=== PATIENT | female | born 1970 | race Caucasian/White ===

== ENCOUNTER 2020-10-10 10:01 | Emergency (ER) | payer OTHER, MEDICAID ==
[~2020-10-10] VITALS: Ht 157.5 cm; Wt 70.8 kg
[2020-10-10 10:04] VITALS: BP 129/72
--- NOTE | 2020-10-10 10:09 | NUR ---
PT TAKEN TO BED 1 VIA WHEELCHAIR.
--- NOTE | 2020-10-10 10:15 | NUR ---
50 y/o F BIB caregiver, Jonnathan, from [facility] for c/c left calf blister x 1 week. Pt presents non-verbal due to history and assessment information received from caregiver. Caregiver states staff noted the blister to left leg/popliteal region, 3" (+) redness/swelling, no drainage noted at site. Unable to obtain pain scale d/t non-verbal/history. Caregiver states staff applied topical antibiotic ointment with no relief. Caregiver states staff noted on Tuesday, 10/04, pt presented with edema from her calf to her feet. Unable to assess CMS due to swelling. Caregiver states RN evaluated pt at facility and was recommended to go to ER for evaluation. Caregiver denies any fevers, chills, nausea/vomiting, trauma/falls. Pt placed onto car framer. Bed locked in lowest position, side rails x 1, call light in reach. MED HX: MR, EPILEPSY, CEREBRAL PALSY, HYPOTHYROID, GERD, HTN, DYSPHAGIA Meds: Plendronate, Levetriacetam, Lansoprazole, levothyroxine, metoprolol, Phenbarbital, Valproic acid NKA
--- NOTE | 2020-10-10 10:20 | NUR ---
Dr. Merino is evaluating patient at bedside with US.
--- NOTE | 2020-10-10 10:45 | NUR ---
Ultrasound at bedside
[2020-10-10] MEDS: CLINDAMYCIN 150 MG CAP GT ONE (10:51)
--- NOTE | 2020-10-10 10:51 | NUR ---
Patient presents with G-tube attachment that is incompatible with stocked syringe equipment (luerlock/plunger). Dr. Merino made aware, new IM orders placed.
[2020-10-10] MEDS: CLINDAMYCIN 600 MG/4 ML VIAL IM ONE (10:57)
--- NOTE | 2020-10-10 11:10 | NUR ---
Patient resting in semi-fowlers with caregiver at bedside. monitoring manager in place. Respirations even/unlabored. Bed locked in lowest position, side rails x 1, call light in reach.
[2020-10-10] MEDS ORDERED: CLIN75PD6 GT (11:44)
[2020-10-10 11:51] VITALS: BP 105/67
--- NOTE | 2020-10-10 11:51 | NUR ---
Patient discharged with v/s stable. Written and verbal after care instructions given and explained. Patient alert, oriented and verbalized understanding of instructions. Wheel Chair Assisted with by caregiver. All questions addressed prior to discharge. ID band removed. Patient advised to follow up with PMD. Rx of Clindamycin given. Patient educated on indication of medication including possible reaction and side effects. Opportunity to ask questions provided and answered.
== END 2020-10-10 11:51 | disposition home or self-care (01) ==
LOC: MED 10:01
DX: L03.116 Cellulitis of left lower limb (principal); R60.0 Localized edema; Z79.899 Other long term (current) drug therapy
CPT/HCPCS: 93971; 96372; 99284; J3490

== ENCOUNTER 2021-05-31 17:57 | Inpatient (IN) | payer OTHER, MEDICAID, SELFPAY ==
[~2021-05-31] VITALS: Ht 167.6 cm; Wt 74.8 kg
[~2021-05-31 17:57] MED LIST: CLIN75PD6 GT
[2021-05-31 18:04] VITALS: BP 140/77
[2021-05-31] MEDS ORDERED: NACL 0.9% 1,000 ML IV ONE (18:30)
[2021-05-31] MEDS ORDERED: LORazepam 2 MG/ML VIAL ONE (18:31)
--- NOTE | 2021-05-31 18:39 | NUR ---
SEIZURE PADS SETUP.
--- NOTE | 2021-05-31 19:02 | NUR ---
50 Y/O F BIBA [facility], [facility] STATES THAT PT HAD 1 SEIZURE THIS MORNING AROUND 1400 AND WAS GIVEN VALPORIC ACID, PT HAD 9 MORE SEIZURE FOLLOWING BLOW UP OPERATOR, [facility] WAS CALLED AFTER 10TH SEIZURE. UPON ARRIVAL PT GCS 11 TO BASELINE, UNABLE TO AMBULATE, WITHDRAWS TO PAIN. PT HAS BRUISING IN LATER STAGE ON R SIDE OF FACE NEAR ORBITAL AREA. PT HAS PRESSURE WOUND UNDER L HEEL AT THIS TIME. G TUBE. SKIN IS WARM/MOIST/EDEMATOUS WITH PITTING EDEMA +1 GENERALIZED. SEIZURE PADS PLACED, PT ON CARDIAC AND OXYGEN MONITORING. PMH: SEIZURES, HTN NKA MED: VALPORIC ACID
[2021-05-31] MEDS ORDERED: LORazepam 2 MG/ML VIAL IVP ONE (19:05)
[2021-05-31 19:10] LABS: BASOPHILS % (AUTO) 0.2 % (0.0-2.0); HEMATOCRIT 43.6 % (36-48); HEMOGLOBIN 14.8 g/dL (12.0-16.0); LYMPHOCYTES # (AUTO) 1.6 K/uL (2.5-16.5); LYMPHOCYTES % (AUTO) 9.8 % (20.5-51.1); MEAN CORPUSCULAR HEMOGLOBIN 32 pg (27-31); MEAN CORPUSCULAR HGB CONC 34 g/dL (33-37); MEAN CORPUSCULAR VOLUME 93.9 fL (80-94); MONOCYTES % (AUTO) 6.3 % (1.7-9.3); NEUTROPHILS # (AUTO) 13.7 K/uL (1.8-7.7); NEUTROPHILS % (AUTO) 83.7 % (42.2-75.2); PLATELET COUNT (AUTO) 202 K/uL (140-450); RED BLOOD CELL COUNT(AUTO) 4.64 MIL/uL (4.20-5.40); RED CELL DISTRIBUTION WIDTH 12.3 % (11.6-13.7); WHITE BLOOD COUNT (AUTO) 16.4 K/uL (4.8-10.8)
--- NOTE | 2021-05-31 19:10 | NUR ---
REPORT RECEIVED FROM REY ANDRE FOR CONTINUITY OF PT CARE AT THIS TIME.
[2021-05-31 19:54] LABS: PROTHROMBIN TIME 10.7 secs (10.8-13.4)
[2021-05-31 19:57] LABS: ALBUMIN 2.9 g/dL (3.4-5.0); ANION GAP 17.6 (8-16); CARBON DIOXIDE 23.1 mmol/L (21-32); CREATININE 0.7 mg/dL (0.6-1.3); POTASSIUM 3.7 mmol/L (3.5-5.1); TOTAL BILIRUBIN 0.1 mg/dL (0.0-1.0)
[2021-05-31] MEDS ORDERED: levETIRAcetam 1,000 MG in NACL 0.9% 100 ML IV ONE (20:25)
[2021-05-31] MEDS ORDERED: levETIRAcetam 100 MG/ML VIAL IV ONE (20:47)
--- NOTE | 2021-05-31 20:58 | NUR ---
PT LAYING IN BED SUPINE LOCKED INLOWEST POSITION W X2 SIDERAIL UP FOR PT SAFETY W SEIZURE PRECAUTIONS IN PLACE. PT GCS 11. NO SIGNS OF PAIN, NAD NOTED, WILL CONTINUE TO MONITOR. VSS ON MONITOR.
[2021-05-31] MEDS ORDERED: DEXT 5% / NACL 0.9% 1,000 ML IV SCH (21:40)
--- NOTE | 2021-05-31 22:40 | NUR ---
PROVIDED PT W PERINEAL CARE. NEW DIAPER, AND PLACED IN GOWN. W ASSISTANCE FROM REY JEFFERSON.
--- NOTE | 2021-05-31 22:43 | NUR ---
ATTEMPTED STRAIGHT CATH ON PT FOR URINE COLLECTION. STRAIGHT CATH ATTEMPTED BY PRIMARY RN AND REY JEFFERSON. UNABLE TO COLLECTED URINE. CHARGE NURSE MADE AWARE.
[2021-05-31] MEDS: DEXT 5% / NACL 0.9% 1,000 ML IV SCH (22:53)
[2021-05-31] MEDS ORDERED: HYDROcodone/APAP 5/325 MG 1 TAB TAB GT PRN (23:10)
[2021-05-31] MEDS ORDERED: LORazepam 2 MG/ML VIAL IVP PRN (23:10)
[2021-05-31] MEDS ORDERED: ACETAMINOPHEN 650 MG/20.3 ML UDC GT PRN ×2 (23:10→23:25)
[2021-05-31] MEDS ORDERED: ONDANSETRON 4 MG/2 ML VIAL IVP PRN (23:10)
--- NOTE | 2021-06-01 00:10 | NUR ---
PT APPEARS TO BE RESTING W EYES CLOSED, IN SUPINE POSITION W BREATHING EVEN AND UNLABORED. NSS. NAD NOTED, WILL CONTINUE TO MONITOR.
--- NOTE | 2021-06-01 00:43 | NUR ---
L HEEL WOUND PHOTO TAKEN AND ATTACHED TO CHART.
--- NOTE | 2021-06-01 01:42 | NUR ---
URINE OBTAINED VIA STRAIGHT CATH W 500 ML CLEAR YELLOW URINE OUTPUT. SAMPLE SENT TO LAB W ROYAL MANAGER NURSING.
[2021-06-01 01:58] LABS: APPEARANCE,URINE CLEAR (CLEAR); BILIRUBIN,URINE NEGATIVE (NEGATIVE); BLOOD, URINE NEGATIVE (NEGATIVE); COLOR,URINE YELLOW (YELLOW); LEUKOCYTE ESTERASE ,URINE NEGATIVE (NEGATIVE); NITRITE, URINE NEGATIVE (NEGATIVE); PH,URINE 8.5 (5.0-9.0); UGLUCOSE NEGATIVE (NEGATIVE)
--- NOTE | 2021-06-01 04:03 | NUR ---
LAYING IN BED SUPINE LOCKED IN LOWEST POSITION W X2 SIDERAILS UP FOR PT SAFETY. SEIZURE PRECAUTIONS IN PLACE. BERATHING EVEN AND UNLABORED. VSS ON MONITOR. 5%-0.9NS RUNNING AT 100ML/HR. NAD NOTED, WILL CONTINUE TO MONITOR.
--- NOTE | 2021-06-01 06:21 | NUR ---
IV FLUIDS STOPPED AT THIS TIME.
--- NOTE | 2021-06-01 06:21 | NUR ---
PT HAD R HAND BENT, AT IV SITE, CHECKED IV SITE. IV SITE NOTED W SOME BLOOD, SKIN HAD SOME REDNESS, AND SLIGHT SWELLING, IV NON-FLUSHABLE. IV REMOVED. WARM COMPRESS APPLIED. NEW IV TO BE ESTABLISHED. CHARGE NURSE MADE AWARE.
[2021-06-01 06:58] LABS: BASOPHILS # (AUTO) 0.1 K/uL (0.00-0.22); BASOPHILS % (AUTO) 0.5 % (0.0-2.0); EOSINOPHILS # (AUTO) 0.1 K/uL (0-0.4); EOSINOPHILS % (AUTO) 0.5 % (0.0-4.0); HEMATOCRIT 40.9 % (36-48); HEMOGLOBIN 13.9 g/dL (12.0-16.0); LYMPHOCYTES # (AUTO) 2.5 K/uL (2.5-16.5); LYMPHOCYTES % (AUTO) 22.7 % (20.5-51.1); MEAN CORPUSCULAR HEMOGLOBIN 32 pg (27-31); MEAN CORPUSCULAR HGB CONC 34 g/dL (33-37); MEAN CORPUSCULAR VOLUME 93.7 fL (80-94); MONOCYTES # (AUTO) 1.1 K/uL (0.8-1.0); NEUTROPHILS # (AUTO) 7.3 K/uL (1.8-7.7); NEUTROPHILS % (AUTO) 66.3 % (42.2-75.2); PLATELET COUNT (AUTO) 246 K/uL (140-450); RED BLOOD CELL COUNT(AUTO) 4.36 MIL/uL (4.20-5.40); RED CELL DISTRIBUTION WIDTH 12.3 % (11.6-13.7)
--- NOTE | 2021-06-01 07:08 | NUR ---
UNABLE TO OBTAIN IV ACCESS AT THIS TIME. AM SHIFT NURSE MADE AWARE.
--- NOTE | 2021-06-01 07:10 | NUR ---
Pt report given to REY ANDRE. Transfer of care at this time.
[2021-06-01 07:12] LABS: ANION GAP 12.4 (8-16); CARBON DIOXIDE 26.6 mmol/L (21-32); CREATININE 0.4 mg/dL (0.6-1.3)
[2021-06-01 07:21] LABS: ALBUMIN 2.8 g/dL (3.4-5.0); MAGNESIUM 2.3 mg/dL (1.8-2.4); PHOSPHORUS 2.9 mg/dL (2.5-4.9); TOTAL BILIRUBIN 0.2 mg/dL (0.0-1.0)
[2021-06-01] MEDS: DEXT 5% / NACL 0.9% 1,000 ML IV SCH ×2 (07:45→17:45)
--- NOTE | 2021-06-01 07:47 | NUR ---
Patient will be admitted to care of CHE DURAN. Admited to TELEMETRY. Will go to room 110A. Belongings list completed. Report to THERESE LE.
[2021-06-01 07:57] VITALS: BP 128/72
--- NOTE | 2021-06-01 07:57 | NUR ---
PT WAS BROUGHT IN BY THE ED ON RNEY IN STABLE CONDITION. PT HAS NO IV ACCESS. PT HAS GENERALIZED EDEMA. PT HAS A LEFT HEEL PRESSURE ULCER WITH DRESSING DRY AND INTACT. PT IS PLACED ON FALL PRECAUTIONS AND SEIZURE PRECAUTIONS. PT IS APHASIC AND WITHDRAWALS TO PAIN. ALL SAFETY MEASURES IN PLACE, CALL LIGHT WITHIN REACH. WILL CONTINUE TO MONITOR.
--- NOTE | 2021-06-01 08:56 | NUR ---
PATIENT HAS BEEN SCREENED AND CATEGORIZED HIGH NUTRITION RISK. PATIENT WILL BE SEEN WITHIN 1-2 DAYS OF ADMISSION. 06/01/21-06/02/[address]
[2021-06-01] MEDS ORDERED: [UNRECOGNIZED DRUG - OTHER] GT SCH (09:00)
--- NOTE | 2021-06-01 10:12 | NUR ---
CONSENT WAS OBTAINED BY DR BOLTON, STATED IT WAS A MEDICALLY NECCESARY FOR SEIZURE ACTIVITY. PICC SERVICE LINE WAS CALLED AND PICC NURSE ARRIVED ROUGHLY AT 0948. MIDLINE WAS PLACED IN LEFT UPPER ARM, DOUBLE LUMEN AT 1012. PT IS STABLE WITH NO ACUTE S/S OF DISTRESS. WILL CONTINUE TO MONITOR.
--- NOTE | 2021-06-01 12:04 | NUR ---
FOX MEDICATION ADMINISTERED PER MD ORDER, PT IS STABLE WITH NO ACUTE S/S OF DISTRESS. WILL CONTINUE TO MONITOR.
--- NOTE | 2021-06-01 13:40 | NUR ---
PT. WITH LOW TRESSA SCALE AT HIGH RISK, CONTINUE TO FOLLOW PRESSURE INJURY PREVENTION INTERVENTIONS. PT. ADMITTED WITH RIGHT HEEL DRY STABLE SCAB, OFFLOADING AREA -TURN AND REPOSITION PATIENT Q 2H -ASSESS AND MONITOR SKIN CONDITION DURING POSITION CHANGE -OFFLOAD BILATERAL HEELS BY PLACING PILLOWS UNDER CALVES AT ALL TIMES, UNLESS OTHERWISE CONTRAINDICATED -PRESSURE REDISTRIBUTION SURFACE AND OFFLOADING SACRALCOCCYX -KEEP SKIN CLEAN AND DRY AT ALL TIMES. PLEASE NOTIFIED WOUND CARE NURSE FOR ANY CHANGE OF SKIN CONDITION
[2021-06-01] MEDS: VALPROIC ACID 250 MG/5 ML UDC PO SCH ×2 (13:48→17:00)
[2021-06-01] MEDS: levETIRAcetam 100 MG/ML ORASYR GT SCH ×2 (13:48→21:25)
--- NOTE | 2021-06-01 14:27 | NUR ---
06/01/21 RD INITIAL ASSESSMENT COMPLETED PLEASE REFER TO NUTRITION ASSESSMENT UNDER CARE ACTIVITY FOR ESTIMATED NUTRITIONAL NEEDS. 1. RECOMMEND JEVITY 1.2 @ 50 ML/HR; START AT 10 ML/HR INCREASE BY 10 Q4H; CONSIDER GRAVITY FEEDING WHICH MAY BE MORE COMPATIBLE WITH PATIENTS G-TUBE PORT. -THIS WILL PROVIDE 1200 ML OF VOLUME, 1440 KCAL/DAY AND 67 GM OF PROTEIN/DAY 2. RECOMMEND FREE WATER FLUSH OF [address] TO FOLLOW-UP 2-3 DAYS, HIGH RISK LESTER [address]
[2021-06-01 16:00] VITALS: BP 108/69
--- NOTE | 2021-06-01 16:27 | NUR ---
DC PLANNING: SIRIA SPOKE WITH RICH AT [facility] BY PHONE. THE PATIENT CAME IN THROUGH THE ED AFTER HAVING 10-15 SEIZURES, IS ON MEDS OF KEPPRA, VALPROIC ACID AND PHENOBARBITAL. SHE HAS INFREQUENT BREAKTHROUGH SEIZURES AND IS FOLLOWED BY DR BOLTON AT THE FACILITY. SHE IS TOTAL CARE AND NON VERBAL BUT DOES TRACK WHEN SPOKEN TO. SHE HAS A BROTHER WHO IS INVOLVED WITH HER CARE, AND IS WC/BEDBOUND. THE PATIENT WAS SEEN BY THE NEUROLOGIST DR ZHU WHO RESTARTED HER ON HER FACILITY MEDS AND INCREASED HER KEPPRA. DC PLAN IS FOR THE PATIENT TO RETURN TO [facility] WHEN CLINICALLY STABLE, THE FACILITY WILL PROVIDE TRANSPORTATION. SIRIA WILL FOLLOW FOR NEEDS. Addendum: 06/03/21 at 1034 by Amanda Soriano CM DC PLANNING: DC ORDER RECEIVED, CM LEFT A MESSAGE FOR THE WELFARE ADMINISTRATOR RAFY LEMONS ([phone]) ENDORSING NEED FOR TRANSPORT AND ASKING FOR A OPHTHALMIC MEDICAL TECHNICIAN TIME. SIRIA ALSO SPOKE WITH STAFF AT THE PATIENTS [facility], THEY STATE THAT RAFY NEEDS TO MAKE THE TRANSPORT ARRANGEMENTS. CM WILL FOLLOW FOR NEEDS. Addendum: 06/03/21 at 1218 by Amanda Soriano CM DC PLANNING: SIRIA SPOKE WITH MIRIAM, THE WELFARE ADMINISTRATOR ([phone]), THE PATIENT WILL BE PICKED UP AT 1330. DISCHARGE ENDORSED TO THE PATIENTS MIRIAM ROLDAN'S NUMBER GIVEN TO ASK WHO TO GIVE REPORT TO. CM WILL FOLLOW FOR NEEDS.
--- NOTE | 2021-06-01 17:34 | NUR ---
FOX MEDICATION ADMINISTERED PER MD ORDER, PT TOLERATED ADMINISTRATION. ALL SAFETY MEASURES IN PLACE, CALL LIGHT WITHIIN REACH. WILL CONTINUE TO MONITOR.
--- NOTE | 2021-06-01 18:58 | NUR ---
PT GTUBE HAS BEEN STARTED.
--- NOTE | 2021-06-01 19:30 | NUR ---
RECEIVED REPORT FROM RN DAYSHIFT NURSE AT BEDSIDE FOR CONTINUITY OF CARE, PT RESTING IN BED WITH EYES CLOSED. SHE IS AOX1 WITH IV SITE DOUBLE LUMEN MIDLINE ON UPPER LEFT ARM RUNNING D5NS AT 100MLS/HR. PT ALSO HAS A GT TUBE INTACT WITH JEVITY 1.2 RUNNING AT 30MLS/HR. PT NOTED WITH CONTRACTIONS OF ARMS AND HANDS WELL NON PITTING EDEMA OF BOTH FEET. PT IS BEDBOUND WITH SKIN INTACT A DRESSING ON THE LEFT HEEL DRY AND INTACT. SHE IS ON SEIZURE PRECAUTIONS WELL ASPIRATION PRECAUTIONS WITH HOB UP 35%. NO SEIZURES REPORT SINCE PT HAS BEEN ON THE MST UNIT, WILL CONTINUE TO MONITOR PT FOR SEIZURES.
--- NOTE | 2021-06-01 19:30 | NUR ---
PT HAS BEEN ENDORSED TO CHARTER DRIVER NURSE FOR CONTINUITY OF CARE, NO SEIZURE ACTIVITY NOTED THROUGHOUT SHIFT, PT REMAINED STABLE WITH FREQ ROUNDS MADE.
[2021-06-01 20:00] VITALS: BP 124/67
--- NOTE | 2021-06-01 20:30 | NUR ---
PT IN BED AROUSABLE TO TOUCH AND OPEN EYES SPONTANEOUSLY, PT UNABLE TO ADDRESS OR CONNECT WITH MEDICAL SUPPORT SPECIALIST, SHE HAS NO S/S OF PAIN OR DISTRESS NOTED, NO RESIDUAL NOTED FROM G TUBE, V/S FOLLOWS: T 97.2 P 80 R 20 B/P 124/67 02 96. ALL ORDERED PRECAUTIONS IN PLACE.
--- NOTE | 2021-06-01 21:30 | NUR ---
PT GIVEN ORDERED KEPPRA VIA G TUBE. ALL SEIZURE,ASPIRATION, AND FALLS PRECAUTIONS IN PLACE. EDUCATION REGARDING MEDICATION OF KEPPRA ITS PURPOSES AND SIDE EFFECTS PROVIDED AT BEDSIDE, PT UNABLE TO VERBALIZE UNDERSTANDING.
--- NOTE | 2021-06-01 22:30 | NUR ---
ROUNDS DONE, PT TURNED, CHANGED AND REPOSITIONED IN BED FLUID RUNNING ORDERED AND ALL ORDERED PRECAUTIONS IN PLACE.
[2021-06-02] VITALS: BP 121/57
[2021-06-02] MEDS ORDERED: PIPERACILLIN/TAZOBACTAM 2.25 GM VIAL IV ONE ×2 (00:01→06:06)
--- NOTE | 2021-06-02 00:30 | NUR ---
[place] BRUNO AND IS RUNNING ORDERED. ALL ORDERED PRECAUTIONS IN PLACE.
[2021-06-02] MEDS: PIPERACILLIN/TAZOBACTAM 4.5 GM in DEXTROSE 5% 100 ML IV SCH ×5 (00:52→23:58)
[2021-06-02] MEDS: DEXT 5% / NACL 0.9% 1,000 ML IV SCH ×3 (03:58→23:45)
[2021-06-02 04:00] VITALS: BP 111/59
--- NOTE | 2021-06-02 04:30 | NUR ---
PT IN BED SHE WAS TURNED, CHANGED AND REPOSITIONED IN BED GT UP TO 50MLS/HR NO RESIDUAL NO SEIZURE ACTIVITY NOTED V/S FOLLOWS; T 97.0 P 83 R 16 B/P 111/59 02 97% ON ROOM AIR.
--- NOTE | 2021-06-02 06:30 | NUR ---
ZOSYN HUNG AND RUNNING ORDERED PT SITTING UP IN BED AWAKE, NO S/S OF PAIN OR DISTRESS NOTED. NO SEIZURE ACTIVITIES, ALL ORDERED PRECAUTIONS IN PLACE.
--- NOTE | 2021-06-02 07:10 | NUR ---
RECEIVE REPORT FROM CONSUMER LOAN MANAGER NURSE FOR CONTINUITY OF CARE. PATIENT SLEEPING. NO ACUTE DISTRESS NOTED. PATIENT HAS GUILLAUME ARM MIDLINE RUNNING 100 ML/ HR D5NS. PATIENT ON ROOM AIR. ALL SAFETY AND SEIZURES MEASURES IN PLACE. CALL LIGHT WITHIN REACH. WILL CONTINUE TO MONITOR.
[2021-06-02 07:43] LABS: BASOPHILS % (AUTO) 0.5 % (0.0-2.0); EOSINOPHILS # (AUTO) 0.2 K/uL (0-0.4); HEMOGLOBIN 13.5 g/dL (12.0-16.0); LYMPHOCYTES # (AUTO) 2.7 K/uL (2.5-16.5); LYMPHOCYTES % (AUTO) 28.9 % (20.5-51.1); MEAN CORPUSCULAR HEMOGLOBIN 32 pg (27-31); MEAN CORPUSCULAR HGB CONC 34 g/dL (33-37); MEAN CORPUSCULAR VOLUME 94.3 fL (80-94); MONOCYTES # (AUTO) 0.8 K/uL (0.8-1.0); MONOCYTES % (AUTO) 8.6 % (1.7-9.3); NEUTROPHILS # (AUTO) 5.6 K/uL (1.8-7.7); PLATELET COUNT (AUTO) 232 K/uL (140-450); RED BLOOD CELL COUNT(AUTO) 4.24 MIL/uL (4.20-5.40); RED CELL DISTRIBUTION WIDTH 12.2 % (11.6-13.7); WHITE BLOOD COUNT (AUTO) 9.4 K/uL (4.8-10.8)
[2021-06-02 07:49] LABS: ANION GAP 11.6 (8-16); CARBON DIOXIDE 28.1 mmol/L (21-32); CREATININE 0.4 mg/dL (0.6-1.3); POTASSIUM 3.7 mmol/L (3.5-5.1)
[2021-06-02 08:00] VITALS: BP 126/68
[2021-06-02] MEDS: levETIRAcetam 100 MG/ML ORASYR GT SCH ×2 (08:43→21:17)
[2021-06-02] MEDS: VALPROIC ACID 250 MG/5 ML UDC PO SCH ×3 (08:43→17:18)
--- NOTE | 2021-06-02 08:49 | NUR ---
PATIENT SLEEPING. NO ACUTE DISTRESS NOTED. NO SEIZURES OBSERVED. PATIENT HAD 5 ML RESIDUAL. SCHEDULED MEDIATION GIVEN. ALL SEIZURE AND SAFETY MEASURES IN PLACE. CALL LIGHT WITHIN REACH. WILL CONTINUE TO MONITOR.
--- NOTE | 2021-06-02 10:50 | NUR ---
PATIENT SLEEPING. NO ACUTE DISTRESS NOTED. NO SEIZURES OBSERVED. ALL SEIZURE AND SAFETY MEASURES IN PLACE. CALL LIGHT WITHIN REACH. WILL CONTINUE TO MONITOR.
[2021-06-02 12:00] VITALS: BP 108/56
--- NOTE | 2021-06-02 12:18 | NUR ---
PATIENT SLEEPING. NO ACUTE DISTRESS NOTED. NO SEIZURES OBSERVED. ALL SEIZURE AND SAFETY MEASURES IN PLACE. CALL LIGHT WITHIN REACH. WILL CONTINUE TO MONITOR.
--- NOTE | 2021-06-02 14:08 | NUR ---
PATIENT AWAKE. NO ACUTE DISTRESS NOTED. NO SEIZURES OBSERVED. ALL SEIZURE AND SAFETY MEASURES IN PLACE. CALL LIGHT WITHIN REACH. WILL CONTINUE TO MONITOR.
[2021-06-02 16:00] VITALS: BP 135/78
--- NOTE | 2021-06-02 16:30 | NUR ---
PATIENT AWAKE. NO ACUTE DISTRESS NOTED. NO SEIZURES OBSERVED. SENIOR COPYWRITER AT BEDSIDE CLEANING PATIENT. ALL SEIZURE AND SAFETY MEASURES IN PLACE. CALL LIGHT WITHIN REACH. WILL CONTINUE TO MONITOR.
--- NOTE | 2021-06-02 18:10 | NUR ---
PATIENT AWAKE. NO ACUTE DISTRESS NOTED. NO SEIZURES OBSERVED. ALL SEIZURE AND SAFETY MEASURES IN PLACE. CALL LIGHT WITHIN REACH. WILL CONTINUE TO MONITOR.
--- NOTE | 2021-06-02 19:10 | NUR ---
ENDORSED TO TICKET MANAGER NURSE FOR CONTINUITY OF CARE. PATIENT STABLE.
--- NOTE | 2021-06-02 19:15 | NUR ---
RECEIVED ENDORSEMENT FROM MORNING SHIFT REGARDING PATIENT'S GALINA. PATIENT IS STABLE AND RESTING IN BED. A&O X1. ON RA O2 SAT OF 97%. RESPIRATIONS EVEN AND UNLABORED. DENIES PAIN 0/10. LEFT HEEL RED AND DRY. GTUBE IN PLACE. SKIN INTACT. PLACEMENT CHECKED. POC AND WHITE COMMUNICATION BOARD UPDATED. SEIZURE PRECAUTION IN PLACE. ALL SAFETY MEASURES IN PLACE. CALL LIGHT WITHIN REACH. WILL CONTINUE TO MONITOR.
[2021-06-02 20:00] VITALS: BP 135/78
--- NOTE | 2021-06-02 21:00 | NUR ---
ALL DUE MEDICATIONS WERE GIVEN BY BDC MANAGER, TOLERATED WELL BY THE PATIENT.
--- NOTE | 2021-06-02 21:00 | NUR ---
ALL DUE MEDICATIONS WERE GIVEN BY PBX MECHANIC, TOLERATED WELL BY THE PATIENT.
--- NOTE | 2021-06-02 21:15 | NUR ---
SCHEDULED MEDICATIONS ADMINISTERED. RESIDUAL CHECKED. NO RETURN. SKIN INTACT. NO AR NOTED AT THIS TIME. NO APPARENT S/SX OF ACUTE RESPIRATORY DISTRESS. ALL SAFETY MEASURES IN PLACE. CALL LIGHT WITHIN REACH. WILL CONTINUE TO MONITOR.
[2021-06-02] MEDS: PHENobarbital 30 MG TAB GT SCH (21:18)
--- NOTE | 2021-06-02 23:15 | NUR ---
ROUNDED ON PATIENT. STABLE AND AWAKE. FLACC 0/10. NO APPARENT S/SX OF ACUTE RESPIRATORY DISTRESS. ALL SAFETY MEASURES IN PLACE. CALL LIGHT WITHIN REACH. WILL CONTINUE TO MONITOR.
[2021-06-03] VITALS: BP 132/76
--- NOTE | 2021-06-03 | NUR ---
PATIENT WAS TURNED SIDE TO SIDE EVERY 2 HOURS IV SOZYN WAS ADMINISTERED VIA PIGGY BACK, NO ASE, TOLERATED WELL BY THE PATIENT.
--- NOTE | 2021-06-03 01:15 | NUR ---
ROUNDED ON PATIENT. STABLE AND SLEEPING COMFORTABLY. FLACC 0/10. NO APPARENT S/SX OF ACUTE RESPIRATORY DISTRESS. ALL SAFETY MEASURES IN PLACE. CALL LIGHT WITHIN REACH. WILL CONTINUE TO MONITOR.
[2021-06-03] MEDS: DEXT 5% / NACL 0.9% 1,000 ML IV SCH (02:30)
--- NOTE | 2021-06-03 02:30 | NUR ---
TUBE FEEDING AND IVF BAG REPLACED. LIZZETTE MID DOUBLE LUMEN PATENT/INTACT. JEVITY 1.2 INFUSING AT 50 ML/HR WITH H2O FLUSH OF 120 ML/HR Q6H PER MED ORDER. D5NS INFUSING AT 100 ML/HR. FLACC 0/10. NO APPARENT S/SX OF ACUTE RESPIRATORY DISTRESS. ALL SAFETY MEASURES IN PLACE. CALL LIGHT WITHIN REACH. WILL CONTINUE TO MONITOR.
[2021-06-03 04:00] VITALS: BP 128/70
--- NOTE | 2021-06-03 04:30 | NUR ---
ROUNDED ON PATIENT. STABLE AND SLEEPING COMFORTABLY. BREATHING SYMMETRICAL. NO APPARENT S/SX OF ACUTE RESPIRATORY DISTRESS. ALL SAFETY MEASURES IN PLACE. CALL LIGHT WITHIN REACH. WILL CONTINUE TO MONITOR.
[2021-06-03] MEDS: PIPERACILLIN/TAZOBACTAM 4.5 GM in DEXTROSE 5% 100 ML IV SCH ×2 (05:05→12:54)
--- NOTE | 2021-06-03 07:01 | NUR ---
ENDORSED PATIENT TO MORNING SHIFT REGARDING GALINA. PATIENT IS STABLE.
[2021-06-03 07:05] LABS: BASOPHILS % (AUTO) 0.3 % (0.0-2.0); EOSINOPHILS # (AUTO) 0.1 K/uL (0-0.4); EOSINOPHILS % (AUTO) 1.5 % (0.0-4.0); HEMATOCRIT 36.8 % (36-48); HEMOGLOBIN 12.7 g/dL (12.0-16.0); LYMPHOCYTES # (AUTO) 2.4 K/uL (2.5-16.5); MEAN CORPUSCULAR HEMOGLOBIN 32 pg (27-31); MEAN CORPUSCULAR HGB CONC 35 g/dL (33-37); MEAN CORPUSCULAR VOLUME 92.8 fL (80-94); MONOCYTES # (AUTO) 0.8 K/uL (0.8-1.0); MONOCYTES % (AUTO) 8.6 % (1.7-9.3); NEUTROPHILS # (AUTO) 5.6 K/uL (1.8-7.7); NEUTROPHILS % (AUTO) 62.6 % (42.2-75.2); PLATELET COUNT (AUTO) 230 K/uL (140-450); RED BLOOD CELL COUNT(AUTO) 3.96 MIL/uL (4.20-5.40); RED CELL DISTRIBUTION WIDTH 12.1 % (11.6-13.7); WHITE BLOOD COUNT (AUTO) 8.9 K/uL (4.8-10.8)
--- NOTE | 2021-06-03 07:11 | NUR ---
PATIENT SLEEPING. BREATHING EVEN AND UNLABORED. NO ACUTE DISTRESS NOTED. CALL LIGHT WITH REACH. ALL SAFETY MEASURES IN PLACE. WILL CONTINUE TO MONITOR.
[2021-06-03 07:22] LABS: ANION GAP 12.9 (8-16); CARBON DIOXIDE 25.7 mmol/L (21-32); CREATININE 0.4 mg/dL (0.6-1.3); POTASSIUM 3.6 mmol/L (3.5-5.1)
--- NOTE | 2021-06-03 07:53 | NUR ---
ALL REPORT WERE GIVEN TO INCOMING RN, TRANSFER FO CARE ENDORSED.
[2021-06-03 08:00] VITALS: BP 102/66
[2021-06-03] MEDS: PHENobarbital 30 MG TAB GT SCH (08:54)
[2021-06-03] MEDS: levETIRAcetam 100 MG/ML ORASYR GT SCH (08:55)
[2021-06-03] MEDS: VALPROIC ACID 250 MG/5 ML UDC PO SCH ×2 (08:55→12:52)
--- NOTE | 2021-06-03 09:05 | NUR ---
PATIENT SLEEPING. NO ACUTE DISTRESS NOTED. ALL SCHEDULED MEDICATIONS GIVEN. CALL LIGHT WITH REACH. SAFETY MONITORS IN PLACE. WILL CONTINUE TO MONITOR.
[2021-06-03] MEDS ORDERED: PHEN-2099 GT ×2 (09:24→13:23)
--- NOTE | 2021-06-03 11:00 | NUR ---
PATIENT AWAKE. NO ACUTE DISTRESS NOTED. CALL LIGHT WITHIN REACH. SAFETY MEASURES IN PLACE. WILL CONTINUE TO MONITOR.
[2021-06-03 12:00] VITALS: BP 124/72
--- NOTE | 2021-06-03 13:09 | NUR ---
PATIENT AWAKE. NO ACUTE DISTRESS NOTED. ALL SCHEDULED MEDICATIONS GIVEN. CALL LIGHT WITH REACH. ALL SAFETY MEASURES IN PLACE. WILL CONTINUE TO MONITOR.
--- NOTE | 2021-06-03 13:55 | NUR ---
PATIENT AWAKE. NO ACUTE DISTRESS NOTED. PATIENT DISCHARGED TO [facility]. GAVE REPORT TO [employer]. MID LINE REMOVED CATHETER INTACT. WRIST BAND REMOVED. PATIENT DISCHARGE INFORMATION PROVIDED. PATIENT UNABLE TO SIGN DUE TO INTELLECTUAL DISABILITY.
== END 2021-06-03 14:00 | DRG 101 ==
LOC: MED 17:57 → MMU 21:41 → MED 21:41 → MTU 06-01 06:08
PROVIDERS: ADMIT Preventive Medicine Preventive Medicine/Occupational Environmental Medicine; ATTEND Preventive Medicine Preventive Medicine/Occupational Environmental Medicine
DX: G40.209 Localization-related (focal) (partial) symptomatic epilepsy and epileptic syndromes with complex partial seizures, not intractable, without status epilepticus (principal); E87.2 Acidosis; D72.829 Elevated white blood cell count, unspecified; G80.9 Cerebral palsy, unspecified; E03.9 Hypothyroidism, unspecified; I10 Essential (primary) hypertension; R13.10 Dysphagia, unspecified; E88.09 Other disorders of plasma-protein metabolism, not elsewhere classified; R73.9 Hyperglycemia, unspecified; Z20.822 Contact with and (suspected) exposure to COVID-19; Z93.1 Gastrostomy status
CPT/HCPCS: 36415; 70450; 71045; 80048; 80053; 81003; 83605; 83735; 84100; 85025; 85610; 85651; 86140; 87040; 87086; 93005; 96365; 96375; 99285; J1953; J2060; J2543; J7060; Q0092